=== PATIENT | female | born 1975 | race Caucasian/White ===

== ENCOUNTER 2018-08-19 02:27 | Inpatient (IN) | payer OTHER ==
[2018-08-19] MEDS ORDERED: CARBOPROST TROME 250 MCG/ML IM PRN (03:10)
[2018-08-19] MEDS ORDERED: METHYLERGONOVINE 0.2MG/ML AMP IM PRN (03:10)
[2018-08-19 03:37] VITALS: BMI 30.8
[2018-08-19] MEDS ORDERED: Ringers Lactate 1,000 ML IV ONE (04:28)
[2018-08-19] MEDS ORDERED: CLINDAMYCIN 600MG/D5W 600 MG/50 ML BAG IV ONE ×2 (04:28→12:33)
[2018-08-19] MEDS ORDERED: OXYTOCIN/LR 20 UNIT/1,000 ML BAG IV ONE (04:28)
[2018-08-19] MEDS ORDERED: Ringers Lactate 1,000 ML IV PRN (04:30)
[2018-08-19] MEDS ORDERED: Ringers Lactate 1,000 ML IV SCH (05:00)
[2018-08-19] MEDS ORDERED: OXYTOCIN/LR 20 UNIT/1,000 ML BAG IV SCH (05:00)
[2018-08-19 05:18] LABS: RPR Titer ND
[2018-08-19 05:23] LABS: Absolute Lymphocytes (CBC) 1.4 K/uL (0.7-4.9); Absolute Monocytes 0.8 K/uL (0.1-1.3); Absolute Neutrophil 5.7 K/uL (1.8-8.0); Basophils % 0.5 % (0-1.3); Eosinophils % 0.8 % (0-4.4); Hematocrit 34.4 % (36.0-45.0); Lymphocytes % 17.8 % (15.3-44.8); MPV 9.3 fL (7.6-11.3); Monocytes % 9.9 % (3.3-12.3); RBC Red Blood Cell Count 3.76 M/uL (3.86-4.86)
[2018-08-19] MEDS ORDERED: CLINDAMYCIN INJ 600 MG in NA CHLORIDE 0.9% 50 ML IV SCH (06:00)
[2018-08-19] MEDS ORDERED: ROPIVACAINE HCL 100 ML IV PRN (07:27)
[2018-08-19] MEDS ORDERED: FENTANYL CITR 100 MCG/2 ML IV ONE (07:27)
[2018-08-19] MEDS ORDERED: ROPIVACAINE HCL 2 MG/ML 100ML IV ONE (07:28)
[2018-08-19] MEDS ORDERED: ROPIVACAINE HCL 0 ML ONE (07:49)
[2018-08-19] MEDS ORDERED: LIDOCAINE 1% MPF 30 ML VIAL ONE (08:05)
[2018-08-19] MEDS ORDERED: CLINDAMYCIN INJ 600 MG in NA CHLORIDE 0.9% 50 ML IV ONE (08:09)
[2018-08-19] MEDS ORDERED: MEPERIDINE HCL 25 MG/0.5 ML IV ONE (08:14)
[2018-08-19] MEDS ORDERED: KETOROLAC 30 MG/ML INJ ONE ×2 (10:20→14:04)
[2018-08-19] MEDS: KETOROLAC 30 MG/ML INJ IV PRN ×2 (10:20→15:30)
[2018-08-19] MEDS ORDERED: HEPATITIS B VACCINE (PEDI) 10 MCG/0.5 ML SYR IMVAC ONE (10:45)
--- NOTE | 2018-08-19 12:08 | PREOPHP ---
Date of Admission: 08/19/2018 The is a 43-year-old, 5, para 2, 37 weeks 6 days, scheduled for induction tomorrow. Has an I UD in place just in front of the baby's head. This has been there the entire , of course. She ruptured membranes at about 1:30 or so this morning. Clear fluid. Came into labor and delivery, 1.5 cm on admission. Started on light Pitocin augmentation. She is wong regularly every 2-1 /2 minutes, very firm, baby looks good. Vital signs are all stable. She is Rh negative. Beta strep negative. Immune to Rubella. Because of the IUD, I have given her a 600 mg of Cleocin. On my exam , she is now 5 cm, 100% effaced, vertex, 0 station. She is rapidly progressing. Requesting epidural . We will start hydration and notify Anesthesia. Anticipate delivery relatively soon. The patient has also been approved for tubal ligation. We will see how she feels after the delivery and whether she wishes to proceed. If so later this evening or tomorrow morning depending on circumstances. SONY/CLAUDIO Voice ID: [id number]
[2018-08-19] MEDS ORDERED: NA CIT/CITRIC AC 30 ML ORAL UDC ONE (12:56)
[2018-08-19] MEDS ORDERED: PROPOFOL 200 MG/20 ML VIAL IV ONE (13:12)
[2018-08-19] MEDS ORDERED: LIDOCAINE 2% MPF 5 ML VIAL ONE (13:13)
[2018-08-19] MEDS ORDERED: MIDAZOLAM HCL 2 MG/2 ML INJ ONE (13:13)
[2018-08-19] MEDS ORDERED: FENTANYL CITR 100 MCG/2 ML ONE ×2 (13:13→14:41)
[2018-08-19] MEDS ORDERED: ROCURONIUM 50 MG/5 ML VIAL IV ONE (13:14)
[2018-08-19] MEDS ORDERED: ONDANSETRON 4 MG/2 ML VIAL ONE (13:14)
[2018-08-19] MEDS ORDERED: GLYCOPYRROLATE 0.2 MG/ML SYR ONE (13:58)
[2018-08-19] MEDS ORDERED: NEOSTIGMINE 1 MG/ML -10 ML VIAL ONE (13:58)
[2018-08-19] MEDS ORDERED: IBUPROFEN 200 MG TAB PO PRN (14:01)
[2018-08-19] MEDS ORDERED: ACETAMINOPHEN 500 MG TAB PO PRN (14:01)
[2018-08-19] MEDS ORDERED: Oxycodone HCl/Acetaminophen 1 TAB TAB PO PRN (14:01)
[2018-08-19] MEDS ORDERED: PROMETHAZINE 25 MG/ML VIAL IM PRN (14:05)
[2018-08-19 14:19] VITALS: O2SAT 100
--- NOTE | 2018-08-19 16:47 | OP ---
Surgeon: Cj Lee MD A 43-year-old, 5, para 2, 37 weeks 6 days, with IUD in place. Came in with ruptured membrane s. Started on light Pitocin augmentation, was 1.5 cm on admission. When checked by myself at around 7-7:30, the patient was 5 cm 100% effaced, 0 to +1 station. Went rapidly to complete. Spontaneous vaginal delivery after a short second stage of 15 to 20 minutes of an estimated 7-pound male infant. Nuchal cord x1 loosely. Apgars 9 and 9. Small first-degree midline laceration repaired with 2-0 ch romic under local infiltration. Schultze delivery of the placenta, which was inspected and noted be intact and normal. A 300 cc or less blood loss. The patient tolerated all procedures well. Complet jameel natural childbirth. Sterilization is pending, has been approved. We will keep her n.p.o. The p atient received of 600 mg of Cleocin after IV was started as IUD was in place for prophylaxis. Final Diagnoses: Term intrauterine at 37 weeks 6 days, spontaneous rupture of membranes, v aginal delivery, IUD retrieved at 5 cm dilation, intact nuchal cord x1. Tubal sterilization pending. SONY/MODL Voice ID: [id number] Report ID: [id number]
[2018-08-19] MEDS: Oxycodone HCl/Acetaminophen 1 TAB TAB PO PRN ×2 (17:30→20:16)
--- NOTE | 2018-08-20 00:08 | OP ---
Surgeon: Cj Lee MD Indications: This is a 43-year-old, 5, para 2, 2 miscarriages, at 36 weeks and 6 days, came in with spontaneous rupture of membranes. Noted to have an IUD in place during the . Kayleigh carrillo uneventfully, , was taken to surgery after full preoperative counseling concerning pro cedure and possible complications, including infection, blood loss, anesthetic complications, injury to bladder, bowel, ureter, postoperative complications, clots in legs, pneumonia, tubal failure rate, tubal ectopic , difficulty in tubal reversal, and essentially permanence of procedure. Description Of Procedure: General anesthesia was employed. A time-out was then done. Subumbilical elliptical incision was created with the scalpel. The incision was carried to the fascia. The fasci a was incised and then tagged with 0 Vicryl. The perineum was entered bluntly. The left tube was gr asped in the midportion, traced out to the fimbriated portion. A knuckle of tube was produced in the midportion of the tube, freehand tied x3 with 2-0 plain was placed. Segment of tube was removed. T he tubal lumen which were exposed were fulgurated. No further bleeding was seen. The tube was allow ed to fall away. A similar procedure was then carried out on contralateral side without difficulty. At this time, the fascia was closed with the stay sutures that had been placed previously 0 Vicryl. Subcutaneous tissue was closed with interrupted sutures of 2-0 plain. Vicryl 4-0 was used to close the skin, and then Dermabond. Minimal blood loss. Cleocin 600 mg preop for prophylaxis. Tolerated all procedures well, transferred to recovery room in good condition. Final Diagnoses: tubal sterilization, modified Dorothy, general anesthesia. NBC/MODL Voice ID: [id number] Report ID: [id number]
[2018-08-20] MEDS: Oxycodone HCl/Acetaminophen 1 TAB TAB PO PRN ×2 (00:36→09:09)
[2018-08-20 01:10] LABS: RPR (Rapid Plasma Reagin) NON-REACT (NON-REACT)
[2018-08-20] MEDS ORDERED: Rho(D) IG (HUMAN) 300 MCG SYR IM ONE (07:33)
[2018-08-20 07:37] VITALS: BP 91/48; TEMP 97.6
--- NOTE | 2018-08-21 08:16 | DS ---
Date of Discharge: 08/20/2018 Hospital Course: A 43-year-old female, 5, para 2, AB 2, 37 weeks 6 days, came in with ruptur ed membranes, in early labor. The patient was known to have an IUD in place throughout the entire pr egnancy. Rh negative, immune to Rubella, and beta strep negative. Went very rapidly during her labo r. Delivered a 7-pound and 1-ounce male , Apgars 9 and 9. Loose nuchal cord. Small first-deg ree midline laceration repaired with 2-0 chromic under local infiltration. Schultze delivery of the placenta, inspected and noted to be intact and normal. A 300 cc or less blood loss. unde rwent tubal sterilization, modified Dorothy. General anesthesia. Postoperatively, afebrile, ambulat ing and voiding. Lochia is normal. She will be dismissed later today to report back to my office in 6 weeks for followup, to report any temperature elevation of 100 degrees or greater, severe pain, he richard bleeding, or any other type of abnormalities. Dismissed with tramadol for analgesia. Final Diagnoses: Term intrauterine , 37 weeks 6 days, intrauterine device in place, vaginal delivery, tubal sterilization. SONY/DELL Voice ID: [id number] Report ID: [id number]
[2018-08-21 19:38] LABS: HBsAG Nonreactive (Nonreactive)
== END 2018-08-20 10:45 | disposition home or self-care (01) | DRG 798 ==
LOC: L&D 02:27 → 2ND-WC 02:39
PROVIDERS: ADMIT Specialist; ATTEND Specialist
PROC: 0UB70ZZ Excision of Bilateral Fallopian Tubes, Open Approach (ICD-10-PCS; 2018-08-19)
PROC: 0HQ9XZZ Repair Perineum Skin, External Approach (ICD-10-PCS; 2018-08-19)
PROC: 0UPD7HZ Removal of Contraceptive Device from Uterus and Cervix, Via Natural or Artificial Opening (ICD-10-PCS; 2018-08-19)
PROC: 10E0XZZ Delivery of Products of Conception, External Approach (ICD-10-PCS; principal; 2018-08-19 13:00)
DX: O70.0 First degree perineal laceration during delivery (principal); Z37.0 Single live birth; Z3A.37 37 weeks gestation of pregnancy; O69.81X0 Labor and delivery complicated by cord around neck, without compression, not applicable or unspecified; Z30.2 Encounter for sterilization; O26.33 Retained intrauterine contraceptive device in pregnancy, third trimester
CPT/HCPCS: 36415; 85025; 85461; 86592; 86850; 86870; 86900; 86901; 87340; 88302; 90744; J2210; J2250; J2405; J2590; J2704; J2710; J2790; J2795; J3010

== ENCOUNTER 2020-01-27 13:04 | Emergency (ER) | payer OTHER ==
[2020-01-27] MEDS ORDERED: KETOROLAC 30 MG/ML INJ ONE (13:57)
[2020-01-27] MEDS ORDERED: dexAMETHasone 4 MG/ML VIAL ONE (13:58)
[2020-01-27 14:09] LABS: Absolute Lymphocytes (CBC) 0.9 K/uL (0.7-4.9); Basophils % 0.5 % (0-1.3); Hematocrit 44.6 % (36.0-45.0); Lymphocytes % 9.9 % (15.3-44.8); MPV 8.8 fL (7.6-11.3); RBC Red Blood Cell Count 4.95 M/uL (3.86-4.86)
[2020-01-27 14:23] LABS: Potassium 3.6 mmol/L (3.5-5.1)
--- NOTE | 2020-01-27 15:37 | RAD REPORT ---
EXAM DESCRIPTION: MRI - Lumbar Spine Wo Con - 01/27/2020 3:15 pm CLINICAL HISTORY: Radiculopathy/incontinence COMPARISON: None. TECHNIQUE: Sagittal T1, T2 and STIR weighted sequences were obtained. Axial T1 and T2 sequences were obtained through the lumbar disc levels. FINDINGS: L1-2, L2-3 and L3-4 are unremarkable Tiny central disc protrusion L4-5 Disc desiccation L4-5 and L5-S1. L5-S1 otherwise unremarkable No abnormal signal within the bones. No abnormality of the spinal canal noted IMPRESSION: Tiny central disc protrusion L4-5 Minimal spondylosis L4-5 and L5-S1
--- NOTE | 2020-01-27 16:13 | EDPHYS ---
Physician Documentation [facility] Name: Madisyn Ochoa Age: 44 yrs Sex: Female : 1975 Arrival Date: 01/27/2020 Time: 13:06 Bed 14 Private MD: Ann-Marie Leonardo ED Physician Laina Ramos HPI: 01/26 14:16 This 44 yrs old Female presents to ER via Ambulatory with complaints of Back jr8 Pain, Urinary Problem. 14:16 The patient presents with pain that is acute. The symptoms are located in the low back. jr8 Onset: The symptoms/episode began/occurred acutely, yesterday. The pain radiates to the right leg and left leg. Associated signs and symptoms: Pertinent positives: bladder incontinence. The problem was sustained when lifting baby. Modifying factors: The patient symptoms are alleviated by nothing, the patient symptoms are aggravated by any movement. Severity of symptoms: At their worst the symptoms were moderate, in the emergency department the symptoms are unchanged. The patient has not experienced similar symptoms in the past. The patient has not recently seen a physician. 14:19 Patient stated that she lifted her son yesterday and felt sharp pain in low back. Since jr8 then has had low back pain with radiation to hips. Stated that when she stands up urinates on herself without effort. Has noticed she has had a bowel movement in toilet after urinating which she was not trying to either. 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 - Social history:: Smoking status: Patient denies any tobacco usage or history of. Patient uses. ROS: 14:19 Eyes: Negative for injury, pain, redness, and discharge, ENT: Negative for injury, jr8 pain, and discharge, Neck: Negative for injury, pain, and swelling, Cardiovascular: Negative for chest pain, palpitations, and edema, Respiratory: Negative for shortness of breath, cough, wheezing, and pleuritic chest pain, Abdomen/GI: Negative for abdominal pain, nausea, vomiting, diarrhea, and constipation, MS/Extremity: Negative for injury and deformity, Skin: Negative for injury, rash, and discoloration, Neuro: Negative for headache, weakness, numbness, tingling, and seizure. 14:19 Back: Positive for pain at rest, pain with movement, radiated pain. Exam: 14:19 Eyes: Pupils equal round and reactive to light, extra-ocular motions intact. Lids and jr8 lashes normal. Conjunctiva and sclera are non-icteric and not injected. Cornea within normal limits. Periorbital areas with no swelling, redness, or edema. ENT: Nares patent. No nasal discharge, no septal abnormalities noted. Tympanic membranes are normal and external auditory canals are clear. Oropharynx with no redness, swelling, or masses, exudates, or evidence of obstruction, uvula midline. Mucous membranes moist. Neck: Trachea midline, no thyromegaly or masses palpated, and no cervical lymphadenopathy. Supple, full range of motion without nuchal rigidity, or vertebral point tenderness. No Meningismus. Cardiovascular: Regular rate and rhythm with a normal S1 and S2. No gallops, murmurs, or rubs. Normal PMI, no JVD. No pulse deficits. Respiratory: Lungs have equal breath sounds bilaterally, clear to auscultation and percussion. No rales, rhonchi or wheezes noted. No increased work of breathing, no retractions or nasal flaring. Abdomen/GI: Soft, non-tender, with normal bowel sounds. No distension or tympany. No guarding or rebound. No evidence of tenderness throughout. Skin: Warm, dry with normal turgor. Normal color with no rashes, no lesions, and no evidence of cellulitis. MS/ Extremity: Pulses equal, no cyanosis. Neurovascular intact. Full, normal range of motion. 14:19 Back: pain, that is moderate, of the lumbar area, ROM is painful, normal spinal alignment noted, CVA tenderness, is absent, vertebral tenderness, is appreciated at L2, L3 and L4, Straight leg raises: pain bilaterally. 14:19 Neuro: Orientation: to person, place \\T\\ time. Mentation: is normal, Memory: is normal, Cranial nerves: CN I not tested, CN II- XII are normal as tested, extraocular movements are intact, Facial palsy and sensory deficits are absent. Speech is clear and appropriate. Cerebellar function: no acute changes, Motor: moves all fours, strength is 5/5 in all extremities, Sensation: no obvious gross deficits, Gait: needs assistance, family member carries the patient, Deep tendon reflexes are 2+ (normal) in the right bicep, right brachioradialis, right patellar, left bicep, left brachioradialis and left patellar, seizure activity, is not displayed by the patient, Abnormal movements: there are no abnormal movements. 14:22 Abdomen/GI: Rectal exam: rectal tone normal, the exam is chaperoned by the nurse. jr8 Vital Signs: 13:17 BP 131 / 90; Pulse 97; Resp 18; Temp 97.5; Pulse Ox 97% ; Weight 68.04 kg; Height 5 ft. ll1 3 in. (160.02 cm); Pain 7/10; 14:17 BP 116 / 76; Pulse 87; Resp 17; Pulse Ox 98% on R/A; tw2 15:25 BP 128 / 59; Pulse 66; Resp 17; Pulse Ox 100% on R/A; Pain 5/10; ss 16:18 BP 124 / 68; Pulse 57; Resp 17; Pulse Ox 100% on R/A; Pain 3/10; tw2 13:17 Body Mass Index 26.57 (68.04 kg, 160.02 cm) ll1 15:25 "if i am not moving around" ss MDM: 13:22 Patient medically screened. jr8 16:09 Data reviewed: vital signs, nurses notes, lab test result(s), radiologic studies, MRI. jr8 Data interpreted: Pulse oximetry: on room air is 100 %. Interpretation: normal. Counseling: I had a detailed discussion with the patient and/or guardian regarding: the historical points, exam findings, and any diagnostic results supporting the discharge/admit diagnosis, lab results, radiology results, the need for outpatient follow up, a neurosurgeon, to return to the emergency department if symptoms worsen or persist or if there are any questions or concerns that arise at home. Response to treatment: the patient's symptoms have markedly improved after treatment. ED course: Patient feeling much better. No saddle anesthesia. No focal deficit or reflex decrease. MRI with only mild spondylosis and disc bulge. Will put on steroids, NSAIDS, and muscle relaxants. Discussed with her no lifting and bed reset for next few days. Heat pads and lidocaine patches OTC for now. If worse to come back otherwise to f/u with PCP for Neuro referral. Patient good with this. 01/26 13:40 Order name: Basic Metabolic Panel; Complete Time: 14:32 01/26 13:40 Order name: CBC with Diff; Complete Time: 14:32 01/26 13:40 Order name: MRI Lumbar Spine wo Con; Complete Time: 15:45 8 01/26 14:48 Order name: Urine Dipstick--Ancillary (enter results) 01/26 14:48 Order name: Urine --Ancillary (enter results) bd 01/26 13:40 Order name: IV Saline Lock; Complete Time: 13:58 8 01/26 13:40 Order name: Labs collected and sent; Complete Time: 13:58 01/26 13:41 Order name: Urine Test (obtain specimen); Complete Time: 14:48 01/26 13:41 Order name: Urine Dipstick-Ancillary (obtain specimen); Complete Time: 14:48 Administered Medications: 14:00 Drug: TORadol - Ketorolac 15 mg Route: IVP; Site: right antecubital; tw2 15:25 Follow up: Response: No adverse reaction ss 14:02 Drug: Decadron - Dexamethasone 10 mg Route: IVP; Site: right antecubital; tw2 15:25 Follow up: Response: No adverse reaction ss 14:14 Drug: Robaxin 1 grams {Note: medication available from pharmacy at this time..} Route: tw2 IVPB; Infused Over: 1 hrs; Site: right antecubital; 15:23 Follow up: infusion continued at this time, was paused while pt was in MRI ss 16:14 Follow up: Response: No adverse reaction; IV Status: Completed infusion tw2 Disposition: 17:59 Co-signature as Attending Physician, Laina Ramos MD. ma2 Disposition: 01/27/20 16:12 Discharged to Home. Impression: Intervertebral disc disorders with radiculopathy, lumbar region. - Condition is Stable. - Discharge Instructions: Herniated Disk, Lumbosacral Radiculopathy. - Prescriptions for meloxicam 15 mg Oral tablet - take 1 tablet by ORAL route once daily As needed; 20 tablet. Robaxin 500 mg Oral Tablet - take 2 tablet by ORAL route every 6 hours As needed; 40 tablet. Medrol (Agustin) 4 mg Oral Tablets, Dose Pack - take 1 tablet by ORAL route as directed - follow package instructions; 1 packet. - Medication Reconciliation Form, Thank You Letter, Antibiotic Education, Prescription Opioid Use form. - Follow up: Ann-Marie Leonardo MD; When: 2 - 3 days; Reason: Recheck today's complaints, Continuance of care, Re-evaluation by your physician. - Problem is new. - Symptoms have improved. Signatures: Dispatcher [employer] EDMS Jesus Toussaint PA PA jr8 Melissa Turk, RN RN tw2 Laina Ramos MD MD ma2 Vincent Cuenca RN RN ll1 Mishel Garzon RN ss Corrections: (The following items were deleted from the chart) 16:26 16:12 01/27/2020 16:12 Discharged to Home. Impression: Intervertebral disc disorders tw2 with radiculopathy, lumbar region. Condition is Stable. Forms are Medication Reconciliation Form, Thank You Letter, Antibiotic Education, Prescription Opioid Use. Follow up: Ann-Marie Leonardo; When: 2 - 3 days; Reason: Recheck today's complaints, Continuance of care, Re-evaluation by your physician. Problem is new. Symptoms have improved. jr8
--- NOTE | 2020-01-27 16:13 | ER ---
Nurse's Notes [facility] Name: Madisyn Ochoa Age: 44 yrs Sex: Female : 1975 Arrival Date: 01/27/2020 Time: 13:06 Bed 14 Private MD: Ann-Marie Leonardo Diagnosis: Intervertebral disc disorders with radiculopathy, lumbar region Presentation: 01/26 13:17 Chief complaint: Patient states: Low back pain since yesterday after picking up son valerie having a fit. Bilateral hip/upper legs pain also. Incontinent of urine when walking for past two hours. Coronavirus screen: Client denies travel out of the [place] in the last 14 days. At this time, the client does not indicate any symptoms associated with coronavirus-19. Ebola Screen: Patient denies travel to an Ebola-affected area in the 21 days before illness onset. Initial Sepsis Screen: Does the patient meet any 2 criteria? HR > 90 bpm. Does the patient have a suspected source of infection? Yes: Bone or joint infection. Risk Assessment: Do you want to hurt yourself or someone else? Patient reports no desire to harm self or others. Onset of symptoms was January 26, 2020. 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 - Social history:: Smoking status: Patient denies any tobacco usage or history of. Patient uses. Screenin:19 Abuse screen: Denies threats or abuse. Nutritional screening: No deficits noted. tw2 Tuberculosis screening: No symptoms or risk factors identified. Fall Risk None identified. Assessment: 13:20 General: Appears in no apparent distress. uncomfortable, well groomed, Behavior is tw2 calm, cooperative, appropriate for age. Pain: Complains of pain in back. Neuro: Level of Consciousness is awake, alert, obeys commands, Oriented to person, place, time, situation. Cardiovascular: Heart tones S1 S2 Patient's skin is warm and dry. Respiratory: Airway is patent Respiratory effort is even, unlabored, Respiratory pattern is regular, symmetrical, Breath sounds are clear bilaterally. GI: No signs and/or symptoms were reported involving the gastrointestinal system. : No signs and/or symptoms were reported regarding the genitourinary system. : Reports incontinence, of urine when i stand up for the past 2 hours. EENT: No signs and/or symptoms were reported regarding the EENT system. Derm: No signs and/or symptoms reported regarding the dermatologic system. Skin is healthy with good turgor, Skin is dry, Skin is pink, warm \\T\\ dry. Skin temperature is warm. Musculoskeletal: Circulation, motion, and sensation intact. Reports pain in back. 14:38 Reassessment: Pt ambulated to restroom with steady gait, slowly. therapy tech awaiting to take patient VIA wheelchair to MRI. 15:16 Reassessment: pt is still in MRI at this time. not available for vs at this time. 15:23 Reassessment: pt back from MRI at this time, NAD, states "it is somewhat better but it ss still hurts when i move around, i think this muscle relaxer will help the most", IV medication of Robaxin infusion restarted at this time. 16:25 Reassessment: Patient appears in no apparent distress at this time. No changes from tw2 previously documented assessment. Patient and/or family updated on plan of care and expected duration. Pain level reassessed. Patient is alert, oriented x 3, equal unlabored respirations, skin warm/dry/pink. Patient states symptoms have improved. Vital Signs: 13:17 BP 131 / 90; Pulse 97; Resp 18; Temp 97.5; Pulse Ox 97% ; Weight 68.04 kg; Height 5 ft. ll1 3 in. (160.02 cm); Pain 7/10; 14:17 BP 116 / 76; Pulse 87; Resp 17; Pulse Ox 98% on R/A; tw2 15:25 BP 128 / 59; Pulse 66; Resp 17; Pulse Ox 100% on R/A; Pain 5/10; ss 16:18 BP 124 / 68; Pulse 57; Resp 17; Pulse Ox 100% on R/A; Pain 3/10; tw2 13:17 Body Mass Index 26.57 (68.04 kg, 160.02 cm) ll1 15:25 "if i am not moving around" ED Course: 13:06 Patient arrived in ED. mr 13:07 Ann-Marie Leonardo MD is Private Physician. mr 13:20 Triage completed. ll1 13:21 Jesus Toussaint PA is PHCP. jr8 13:21 Laina Ramos MD is Attending Physician. jr8 13:21 Arm band placed on Patient placed in an exam room, on a stretcher. ll1 13:36 Initial lab(s) drawn, by me, sent to lab. Inserted saline lock: 20 gauge in right jp3 antecubital area, using aseptic technique. Blood collected. 13:36 Patient maintains SpO2 saturation greater than 95% on room air. jp3 13:42 Melissa Turk, RN is Primary Nurse. tw2 13:57 Bed in low position. Call light in reach. Side rails up X 1. Verbal reassurance given. jp3 Pulse ox on. NIBP on. 15:11 MRI Lumbar Spine wo Con In Process Unspecified. EDMS 16:11 Ann-Marie Leonardo MD is Referral Physician. jr8 16:25 No provider procedures requiring assistance completed. IV discontinued, intact, tw2 bleeding controlled, No redness/swelling at site. Pressure dressing applied. Administered Medications: 14:00 Drug: TORadol - Ketorolac 15 mg Route: IVP; Site: right antecubital; tw2 15:25 Follow up: Response: No adverse reaction ss 14:02 Drug: Decadron - Dexamethasone 10 mg Route: IVP; Site: right antecubital; tw2 15:25 Follow up: Response: No adverse reaction 14:14 Drug: Robaxin 1 grams {Note: medication available from pharmacy at this time..} Route: tw2 IVPB; Infused Over: 1 hrs; Site: right antecubital; 15:23 Follow up: infusion continued at this time, was paused while pt was in MRI 16:14 Follow up: Response: No adverse reaction; IV Status: Completed infusion tw2 Intake: Outcome: 16:12 Discharge ordered by . jr8 16:25 Discharged to home via wheelchair. tw2 16:25 Condition: stable 16:25 Discharge instructions given to patient, Instructed on discharge instructions, follow up and referral plans. no drinking with medication, no driving heavy equipment, medication usage, Demonstrated understanding of instructions, follow-up care, medications, Prescriptions given X 2. 16:26 Patient left the ED. tw2 Signatures: Dispatcher [employer] EDME Olena Robb mr ErnestoMishel weiner, RN RN Jesus Ariza PA PA jr8 Melissa Turk RN RN tw2 Shekhar De Santiago jp3 Vincent Cuenca RN RN ll1 Corrections: (The following items were deleted from the chart) 13:25 13:17 Chief complaint: Patient states: Low back pain since yesterday after picking up ll1 son having a fit. Bilateral hip/legs pain also. Loosing urine with walking for past two hours. ll1
[2020-01-27 16:46] LABS: Urine Blood 2+ (NEG); Urine Glucose NEGATIVE (NEG); Urine Protein NEGATIVE (NEG); Urine Specific Gravity 1.015 (1.005-1.030); Urine pH 6.5 (5.0-7.0)
[2020-01-27 16:50] VITALS: TEMP 97.5
[2020-01-27 16:56] VITALS: O2SAT 100
[2020-01-27 17:02] VITALS: BP 124/68
== END 2020-01-27 16:26 | disposition home or self-care (01) ==
LOC: ER 13:04
DX: M51.16 Intervertebral disc disorders with radiculopathy, lumbar region (principal); Z88.1 Allergy status to other antibiotic agents; Z88.8 Allergy status to other drugs, medicaments and biological substances
CPT/HCPCS: 96365; 85025; 80048; 36415; 81025; 81003; 72148; 96375; 99284; 96366; J1100; J2800

== ENCOUNTER 2022-05-08 10:26 | Emergency (ER) | payer OTHER ==
[2022-05-08] MEDS ORDERED: ASPIRIN 81 MG CHEWABLE TABLET ONE (10:54)
[2022-05-08 11:30] LABS: Potassium 3.3 mmol/L (3.5-5.1)
[2022-05-08 11:42] LABS: Absolute Lymphocytes (CBC) 1.4 K/uL (0.7-4.9); Hematocrit 41.8 % (36.0-45.0); Lymphocytes % 19.6 % (15.3-44.8); MCV 89.2 fL (80-100); MPV 8.6 fL (7.6-11.3); RBC Red Blood Cell Count 4.68 M/uL (3.86-4.86)
[2022-05-08 12:06] LABS: Troponin High Sensitivity 3.5 pg/mL (<58.9)
--- NOTE | 2022-05-08 12:45 | RAD REPORT ---
EXAM DESCRIPTION: RAD - Chest Single View - 05/08/2022 12:12 pm CLINICAL HISTORY: CHEST PAIN Chest pain. COMPARISON: No comparisons FINDINGS: Portable technique limits examination quality. The lungs are grossly clear. The heart is normal in size. No displaced fractures. IMPRESSION: No acute intrathoracic process suspected.
--- NOTE | 2022-05-08 12:53 | EDPHYS ---
Physician Documentation [facility] Name: Madisyn Ochoa Age: 47 yrs Sex: Female : 1975 Arrival Date: 05/08/2022 Time: 10:31 Bed 17 Private MD: ED Physician Carlo Gordon HPI: 05/08 11:22 This 47 yrs old Female presents to ER via Ambulatory with complaints of Chest ms3 Discomfort. 11:22 47-year-old female with past medical history of anxiety presents for chest pain that is ms3 located in the center of her chest for 6 weeks. Patient states the pain is intermittent and now has been in the left side of her chest and sharp for the past 2 weeks. Patient states that each episode lasted a couple of hours. Patient states she is currently not experiencing chest pain. Patient states pain is worse when her heart rate is elevated. Patient denies diaphoresis or vomiting. Patient endorses shortness of breath and nausea.. 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 - Social history:: Smoking status: Patient denies any tobacco usage or history of. Patient/guardian denies using alcohol. ROS: 11:22 Constitutional: Negative for fever, and chills. Neck: Negative for injury, pain, and ms3 swelling. 11:22 MS/Extremity: Negative for injury and deformity, Skin: Negative for injury, rash, and discoloration. 11:22 Cardiovascular: Positive for chest pain. 11:22 Respiratory: Positive for cough, shortness of breath. 11:22 Abdomen/GI: Positive for nausea, Negative for abdominal pain, vomiting, diarrhea. 11:22 All other systems are negative. Exam: 11:22 Constitutional: This is a well developed, well nourished patient who is awake, alert, ms3 and in no acute distress. Head/Face: Normocephalic, atraumatic. Neck: Trachea midline, no cervical lymphadenopathy. Supple, full range of motion without nuchal rigidity, or vertebral point tenderness. No Meningismus. Chest/axilla: Normal chest wall appearance and motion. Nontender with no deformity. 11:22 Skin: Warm, dry with normal turgor. Normal color with no rashes, no lesions, and no evidence of cellulitis. MS/ Extremity: Pulses equal, no cyanosis. Neurovascular intact. Full, normal range of motion. 11:22 Cardiovascular: Rate: tachycardic, Rhythm: regular, Pulses: no pulse deficits are appreciated, Heart sounds: normal. 11:24 ECG was reviewed by the Attending Physician. ms3 Vital Signs: 10:39 BP 169 / 96; Pulse 122; Resp 18; Temp 98.6(O); Pulse Ox 100% on R/A; Weight 66.68 kg; ld1 Height 5 ft. 3 in. (160.02 cm); Pain 0/10; 11:22 Pulse 74; ap3 11:25 BP 127 / 65; Pulse Ox 100% on R/A; ap3 12:03 BP 117 / 69; Pulse 71; Pulse Ox 100% on R/A; ap3 12:42 BP 113 / 67; Pulse 69; Pulse Ox 98% on R/A; ap3 10:39 Body Mass Index 26.04 (66.68 kg, 160.02 cm) ld1 MDM: 10:48 Patient medically screened. ms3 11:22 Differential diagnosis: abnormal EKG, acute myocardial infarction, chest wall pain. ms3 13:12 HEART Score: History: Slightly Suspicious (0), ECG: Normal (0), Age: > 45 and < 65 ms3 years (1), Risk Factors: No Risk Factors Known (0), Troponin: < or = 1 x Normal Limit (0), Total Score = 1. The patient was given aspirin in the Emergency Department. Data reviewed: vital signs, nurses notes, lab test result(s), EKG, radiologic studies, and as a result, I will discharge patient. Consideration of Admission/Observation Escalation of care including admission/observation considered. Patient with negative troponin, heart score 1.. I considered the following discharge prescriptions or medication management in the emergency department Medications were administered in the Emergency Department. See MAR. Independent interpretation of the following test(s) in the Emergency Department X-Ray: My interpretation is CXR image reviewed by myself: Negative. Test considered but Not performed: CT: D-dimer negative. Historians other than the Patient: Spouse/Significant Other: Patient's . Counseling: I had a detailed discussion with the patient and/or guardian regarding: the historical points, exam findings, and any diagnostic results supporting the discharge/admit diagnosis, lab results, radiology results, the need for outpatient follow up, to return to the emergency department if symptoms worsen or persist or if there are any questions or concerns that arise at home. ED course: Discussed labs, chest x-ray, EKG with the patient. Patient to follow-up with Dr. Joseph in 1 to 2 days. Patient or stands and agrees with plan. All questions were answered. Return precautions discussed include worsening symptoms, lightheadedness, nausea, vomiting, syncope, or any other concerns. 05/08 10:44 Order name: Basic Metabolic Panel; Complete Time: 12:31 05/08 10:44 Order name: CBC with Diff; Complete Time: 12:31 05/08 10:44 Order name: D-Dimer; Complete Time: 12:31 05/08 10:44 Order name: Troponin HS; Complete Time: 12:31 05/08 10:44 Order name: XRAY Chest (1 view); Complete Time: 12:51 05/08 10:44 Order name: EKG; Complete Time: 10:45 05/08 10:44 Order name: Cardiac monitoring; Complete Time: 10:55 05/08 10:44 Order name: EKG - Nurse/Tech; Complete Time: 10:44 05/08 10:44 Order name: IV Saline Lock; Complete Time: 11:01 05/08 10:44 Order name: Labs collected and sent; Complete Time: 11:05/08 10:44 Order name: O2 Per Protocol; Complete Time: 10:44 05/08 10:44 Order name: O2 Sat Monitoring; Complete Time: 10:44 ld EC:24 Rate is 88 beats/min. Rhythm is regular. QRS [place] is Normal. NC interval is normal. QRS ms3 interval is normal. QT interval is normal. Clinical impression: Normal ECG. Interpreted by me. Reviewed by me. Administered Medications: 10:55 Drug: Aspirin Chewable Tablet 324 mg Route: PO; ap3 Disposition Summary: 05/08/22 12:53 Discharge Ordered Location: Home ms3 Condition: Stable ms3 Diagnosis - Chest pain, unspecified ms3 - Shortness of breath ms3 Followup: ms3 - With: Rian Joseph MD - When: 1 - 2 days - Reason: Recheck today's complaints Discharge Instructions: - Discharge Summary Sheet ms3 - Nonspecific Chest Pain, Adult ms3 - Shortness of Breath, Adult ms3 Forms: - Medication Reconciliation Form ms3 - Thank You Letter ms3 - Antibiotic Education ms3 - Prescription Opioid Use ms3 Signatures: Dispatcher [employer] Brittney Espinal RN RN ap3 Carlo Gordon DO DO ms3 Ebony Sultana RN RN ld1
--- NOTE | 2022-05-08 12:53 | ER ---
Nurse's Notes [facility] Name: Madisyn Ochoa Age: 47 yrs Sex: Female : 1975 Arrival Date: 05/08/2022 Time: 10:31 Bed 17 Private MD: Diagnosis: Chest pain, unspecified;Shortness of breath Presentation: 05/08 10:39 Chief complaint: Patient states: Intermittent chest pain X 2 weeks. When my heart rate ld1 increases the pain increases as well. Coronavirus screen: At this time, the client does not indicate any symptoms associated with coronavirus-19. Ebola Screen: No symptoms or risks identified at this time. Initial Sepsis Screen: Does the patient meet any 2 criteria? No. Patient's initial sepsis screen is negative. Does the patient have a suspected source of infection? No. Patient's initial sepsis screen is negative. Risk Assessment: Do you want to hurt yourself or someone else? Patient reports no desire to harm self or others. Onset of symptoms was May 08, 2022. 10:39 Method Of Arrival: Ambulatory ld1 10:39 Acuity: KATHY 3 ld1 Triage Assessment: 10:41 General: Appears in no apparent distress. comfortable, Behavior is cooperative, ld1 appropriate for age, anxious. Pain: Complains of pain in chest Pain radiates to left arm Pain currently is 0 out of 10 on a pain scale. at worst was 9 out of 10 on a pain scale. Quality of pain is described as sharp, shooting, throbbing. EENT: No signs and/or symptoms were reported regarding the EENT system. Neuro: Level of Consciousness is awake, alert, obeys commands, Oriented to person, place, time, situation. Cardiovascular: Capillary refill < 3 seconds Patient's skin is warm and dry. Rhythm is sinus tachycardia. Respiratory: Airway is patent Respiratory effort is even, unlabored. GI: Abdomen is flat, non-distended. : No signs and/or symptoms were reported regarding the genitourinary system. Derm: No signs and/or symptoms reported regarding the dermatologic system. Musculoskeletal: No signs and/or symptoms reported regarding the musculoskeletal system. 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 - Social history:: Smoking status: Patient denies any tobacco usage or history of. Patient/guardian denies using alcohol. Screenin:59 [facility] ED Fall Risk Assessment (Adult) History of falling in the last 3 months, ap3 including since admission No falls in past 3 months (0 pts). Abuse screen: Denies threats or abuse. Nutritional screening: No deficits noted. Tuberculosis screening: No symptoms or risk factors identified. Vital Signs: 10:39 BP 169 / 96; Pulse 122; Resp 18; Temp 98.6(O); Pulse Ox 100% on R/A; Weight 66.68 kg; ld1 Height 5 ft. 3 in. (160.02 cm); Pain 0/10; 11:22 Pulse 74; ap3 11:25 BP 127 / 65; Pulse Ox 100% on R/A; ap3 12:03 BP 117 / 69; Pulse 71; Pulse Ox 100% on R/A; ap3 12:42 BP 113 / 67; Pulse 69; Pulse Ox 98% on R/A; ap3 10:39 Body Mass Index 26.04 (66.68 kg, 160.02 cm) ld1 ED Course: 10:31 Patient arrived in ED. rg4 10:37 Carlo Gordon DO is Attending Physician. ms3 10:41 Triage completed. ld1 10:41 Arm band placed on right wrist. EKG completed in triage. Results shown to MD. ld1 10:51 Brittney Espinosa, RN is Primary Nurse. ap3 11:00 Patient has correct armband on for positive identification. Placed in gown. Bed in low ap3 position. Call light in reach. Side rails up X 1. traffic monitor specialist on. Pulse ox on. NIBP on. Door closed. Noise minimized. Warm blanket given. 11:01 Inserted saline lock: 20 gauge in left antecubital area, using aseptic technique. Blood ap3 collected. 12:14 XRAY Chest (1 view) In Process Unspecified. EDMS 12:52 Rian Joseph MD is Referral Physician. ms3 13:07 No provider procedures requiring assistance completed. IV discontinued, intact, ap3 bleeding controlled, No redness/swelling at site. Pressure dressing applied. Administered Medications: 10:55 Drug: Aspirin Chewable Tablet 324 mg Route: PO; ap3 Medication: 10:59 VIS not applicable for this client. ap3 Outcome: 12:53 Discharge ordered by MD. ms3 13:15 Patient left the ED. ap3 Signatures: Dispatcher [employer] EDMS Latonia Unger rg4 Brittney Espinosa, RN RN ap3 Carlo Gordon DO DO ms3 Ebony Sultana, RN RN ld1
[2022-05-08 13:56] VITALS: TEMP 98.6
[2022-05-08 14:00] VITALS: BP 113/67; O2SAT 98
== END 2022-05-08 13:15 | disposition home or self-care (01) ==
LOC: ER 10:26
DX: R07.89 Other chest pain (principal); R06.02 Shortness of breath; R11.0 Nausea; R05.9 Cough, unspecified; Z88.1 Allergy status to other antibiotic agents; Z88.3 Allergy status to other anti-infective agents; Z88.8 Allergy status to other drugs, medicaments and biological substances
CPT/HCPCS: 36415; 71045; 80048; 84484; 85025; 85379; 93005

== ENCOUNTER 2022-09-03 11:45 | Day surgery (SDC) | payer BC, OTHER ==
[2022-08-31 13:36] LABS: Absolute Lymphocytes (CBC) 1.7 K/uL (0.7-4.9); Hematocrit 40.7 % (36.0-45.0); Lymphocytes % 30.8 % (15.3-44.8); MCV 89.6 fL (80-100); MPV 8.2 fL (7.6-11.3); RBC Red Blood Cell Count 4.55 M/uL (3.86-4.86)
[2022-08-31 13:56] LABS: Potassium 3.7 mEq/L (3.5-5.1)
[2022-08-31 14:00] LABS: Protime INR 0.96
--- NOTE | 2022-09-03 10:20 | EKG ---
Test Date: 2022-08-31 Test Time: 13:09:30 El Teacher: KRUNAL MEASUREMENT RESULTS: Intervals: Rate: 62 MN: 130 QRSD: 76 QT: 396 QTc: 401 [place]: P: 74 MN: 130 QRS: 84 T: 77 INTERPRETIVE STATEMENTS: Normal sinus rhythm Normal ECG Compared to ECG 05/08/2022 10:47:31 Sinus arrhythmia no longer present Electronically Signed On 09-03-22 10:14:24 CDT by Doni Harrell
[2022-09-03] MEDS ORDERED: NA CHLORIDE 0.9% 500 ML ONE (12:15)
[2022-09-03] MEDS ORDERED: HEPA 1000U/500MLS 2,000 UNIT/1,000 ML BAG IV ONE (12:56)
[2022-09-03] MEDS ORDERED: LIDOCAINE 1% 20 ML MDV ONE (12:56)
[2022-09-03] MEDS ORDERED: MIDAZOLAM HCL 2 MG/2 ML INJ ONE (12:57)
[2022-09-03] MEDS ORDERED: FENTANYL CITR 100 MCG/2 ML ONE (12:57)
[2022-09-03] MEDS ORDERED: HEPARIN 5000 UNIT/ML 1 ML VIAL ONE (12:57)
[2022-09-03] MEDS ORDERED: HEPARIN 10,000 UNIT/10 ML VIAL IV ONE (12:58)
[2022-09-03] MEDS ORDERED: NITROGLYCERIN 100 MCG/ML SYR (for cath lab use only) IV ONE (12:59)
[2022-09-03] MEDS ORDERED: VERAPAMIL HCL 10 MG/4 ML VIAL IV ONE (12:59)
[2022-09-03 13:19] VITALS: O2SAT 100
[2022-09-03] MEDS ORDERED: ATROPINE SULF 1 MG/10 ML SYR IV ONE (14:10)
[2022-09-03 18:15] VITALS: BP 117/64; TEMP 98.5
== END 2022-09-03 17:41 | disposition home or self-care (01) ==
LOC: CCL 11:45
PROVIDERS: ATTEND Internal Medicine
DX: R07.89 Other chest pain (principal); R06.02 Shortness of breath; I34.0 Nonrheumatic mitral (valve) insufficiency; R00.2 Palpitations; Z88.0 Allergy status to penicillin; Z88.3 Allergy status to other anti-infective agents; Z88.8 Allergy status to other drugs, medicaments and biological substances; Z82.49 Family history of ischemic heart disease and other diseases of the circulatory system
CPT/HCPCS: 93005; 85025; 80048; 36415; 85610; 85730; 93460; 76937; C1893; Q9966; J1644; J2001; J3010; J7040; J0461; J2250